=== PATIENT | male | born 2005 | race Caucasian/White ===

== ENCOUNTER 2024-10-01 22:45 | Emergency (ER) | payer SELFPAY ==
[~2024-10-01] VITALS: Ht 175.3 cm; Wt 78.0 kg
[2024-10-01 23:05] VITALS: O2SAT 100
[2024-10-01] MEDS: BACITRACIN ZINC OINT UDPKT TOP ONE (23:30)
[2024-10-01] MEDS: LIDOCAINE HCL/PF 1% 10 MG/ML 5ML VIAL INFIL ONE (23:30)
[2024-10-01] MEDS: IBUPROFEN 600MG TABLET PO ONE (23:49)
[2024-10-02] MEDS ORDERED: BO1 TP (00:22)
[2024-10-02 01:16] VITALS: BP 120/72; PULSE 67; RESP 14; TEMP 36.7; O2SAT 100
== END 2024-10-02 01:17 | disposition home or self-care (01) ==
LOC: ER 22:45
DX: S91.311A Laceration without foreign body, right foot, initial encounter (principal); Z79.899 Other long term (current) drug therapy; W26.8XXA Contact with other sharp object(s), not elsewhere classified, initial encounter; Y93.89 Activity, other specified; Y92.89 Other specified places as the place of occurrence of the external cause; Y99.8 Other external cause status
CPT/HCPCS: 99282; 12001; J2003